=== PATIENT | female | born 1975 | race Caucasian/White ===

== ENCOUNTER 2016-11-27 13:15 | Emergency (ER) | payer OTHER ==
[~2016-11-27] VITALS: Ht 157.5 cm; Wt 84.0 kg
[2016-11-27 13:35] VITALS: BP 127/97; PULSE 69; RESP 18; TEMP 98.3; O2SAT 97
[2016-11-27] MEDS ORDERED: NORT75CA PO (13:41)
[2016-11-27] MEDS ORDERED: TOPI200T7 PO (13:41)
[2016-11-27] MEDS ORDERED: FLUO-1 PO (13:41)
[2016-11-27] MEDS ORDERED: DIAZ2TAB PO (13:41)
[2016-11-27] MEDS ORDERED: MORPHINE SULFATE 4 MG/ML INJ IV PUSH ONE (13:45)
[2016-11-27] MEDS ORDERED: ONDANSETRON HCL 4 MG/2 ML VIAL IV ONE (13:45)
[2016-11-27] MEDS ORDERED: SODIUM CHLORIDE 0.9% FLUSH 10 ML FLUSH IV FLUSH PRN (13:45)
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
[2016-11-27 13:58] VITALS: O2SAT 96
[2016-11-27 14:15] LABS: AUTOMATED NEUTROPHIL # 6.9 TH/MM3 (1.8-7.7); BASOPHIL # 0.1 TH/MM3 (0-0.2); BASOPHIL % 0.9 % (0.0-2.0); EOSINOPHIL # 0.2 TH/MM3 (0-0.4); EOSINOPHIL % 1.9 % (0.0-4.0); HEMATOCRIT 41.9 % (35.0-46.0); HEMO FLAGS AUTO DIFF; LYMPH % 15.7 % (9.0-44.0); LYMPHOCYTE # 1.4 TH/MM3 (1.0-4.8); MEAN CELL VOLUME 86.5 FL (80.0-100.0); MEAN CORPUSCULAR HEMOGLOBIN 29.3 PG (27.0-34.0); MEAN CORPUSCULAR HGB CONC 33.9 % (32.0-36.0); NEUT % 75.5 % (16.0-70.0); PLATELET COUNT 151 TH/MM3 (150-450); RED BLOOD COUNT 4.85 MIL/MM3 (4.00-5.30); WHITE BLOOD COUNT 9.1 TH/MM3 (4.0-11.0)
[2016-11-27 14:23] LABS: INTERNATIONAL NORMALIZED RATIO 0.9 RATIO; PROTHROMBIN TIME - PATIENT 10.3 SEC (9.8-11.6)
[2016-11-27 14:46] LABS: PLATELET ESTIMATE SMEAR NORMAL (NORMAL); PLATELET MORPHOLOGY NORMAL (NORMAL); SCAN/DIFF AUTO DIFF CONFIRMED
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
[2016-11-27] MEDS ORDERED: IOHEXOL 350 MG/ML 10 ML VIAL (for RAD DIAG) IV ONE (15:08)
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
[2016-11-27] MEDS ORDERED: IBUP800T23 PO (16:51)
[2016-11-27] MEDS ORDERED: ROBA500T PO (16:51)
[2016-11-27] MEDS ORDERED: POTASSIUM CHLORIDE 20 MEQ CONTROLLED RELEASE TAB PO ONE (17:00)
[2016-11-27] MEDS ORDERED: KETOROLAC TROMETHAMINE 30 MG/ML (IVP) VIAL IV PUSH ONE (17:00)
[2016-11-27] MEDS ORDERED: oxyCODONE/ACETAMINOPHEN 5 MG/325 MG TAB PO ONE (17:00)
== END 2016-11-27 18:13 | disposition home or self-care (01) ==
LOC: NEPD 13:15
DX: S49.91XA Unspecified injury of right shoulder and upper arm, initial encounter (principal); S29.012A Strain of muscle and tendon of back wall of thorax, initial encounter; S20.219A Contusion of unspecified front wall of thorax, initial encounter; M54.2 Cervicalgia; M25.511 Pain in right shoulder; R07.89 Other chest pain; M25.552 Pain in left hip; M25.551 Pain in right hip; V43.62XA Car passenger injured in collision with other type car in traffic accident, initial encounter
CPT/HCPCS: 70450; 70486; 71010; 72125; 72128; 72131; 73030; 73502; 74177; 80048; 83690; 84703; 85025; 85610; 85730; 96374; 96375; 99285; J1885; J2270; J2405; Q9967